=== PATIENT | male | born 1960 | race African-American/Black ===

== ENCOUNTER 2025-06-16 10:58 | Emergency (ER) | payer MEDICAID ==
[~2025-06-16] VITALS: Ht 177.8 cm; Wt 77.0 kg
[~2025-06-16 10:58] MED LIST: DIOVAN
[2025-06-16 11:03] VITALS: BP 181/103; PULSE 90; RESP 16; TEMP 37; O2SAT 100; O2SAT 99
== END 2025-06-16 11:52 | disposition home or self-care (01) ==
LOC: ER 10:58
DX: K60.2 Anal fissure, unspecified (principal); I10 Essential (primary) hypertension; Z79.899 Other long term (current) drug therapy
CPT/HCPCS: 99282